=== PATIENT | male | born 1980 | race Caucasian/White ===

== ENCOUNTER → 2016-11-03 | Outpatient (CLI) | payer OTHER ==
[~2016-11-03] MED LIST: ISOVUE-370 76% 100ML VIAL (Q9967) As Ordered ONE
--- NOTE | 2016-11-04 04:10 | REP ---
Clinical: Shortness of breath. Technique: Axial contrast enhanced images from the thoracic inlet to the upper abdomen using 100 ml Isovue 370 intravenous contrast material with coronal and sagittal re-formations. Comparison: None. Findings: Moderate ill-defined consolidation involving the left lower lobe likely represents acute pneumonia and atelectasis. The remainder of lung sanders are well-aerated and essentially clear. No pleural effusion. No pneumothorax. Tracheobronchial tree is patent. No significant adenopathy. Mediastinum demonstrates normal thoracic aorta and heart/pericardium. Surrounding musculoskeletal structures are intact. Limited evaluation of the upper abdomen suggests left renal cyst. Impression: 1. Moderate ill-defined left lower lobe consolidation likely representing atelectasis/pneumonia. Follow-up to resolution recommended. 2. Suspected left renal cyst may be followed by ultrasound if necessary. Signed by Saravanan Grimes MD 11/04/2016 04:02 A
== END ==
LOC: M RAD 16:06
DX: R05 Cough (principal); R06.02 Shortness of breath; R91.8 Other nonspecific abnormal finding of lung field
CPT/HCPCS: 71260; Q9967